=== PATIENT | male | born 1950 | race Asian ===

== ENCOUNTER 2017-07-14 07:24 | Emergency (ER) | payer BC, OTHER ==
[~2017-07-14] VITALS: Ht 167.6 cm; Wt 70.3 kg
[2017-07-14 08:00] LABS: Urine WBC None Seen /hpf (0 - 3)
[2017-07-14 08:12] LABS: Basophils # (auto) 0 uL; Basophils % (auto) 0.2 % (0.0-2.0); Eosinophils # (auto) 0 uL; Hematocrit 46.3 % (41.0-53.0); Hemoglobin 15.5 g/dL (13.5-17.5); Lymphocytes # (auto) 1.1 uL; Lymphocytes % (auto) 13.4 % (10.0-50.0); Mean Corpuscular Hemoglobin 31.5 pg (28.0-32.0); Mean Corpuscular Hgb Conc. 33.4 g/dL (32.0-36.0); Mean Corpuscular Volume 94.4 fL (80.0-100.0); Monocytes # (auto) 0.4 uL; Monocytes % (auto) 4.2 % (0.0-12.0); Neutrophils # (auto) 6.8 uL; Neutrophils % (auto) 82.2 % (37.0-80.0); Platelet Count (auto) 220 10^3/uL (140-450); Red Blood Cells 4.91 10^6/uL (4.5-5.90); Red Cell Distribution Width 12.9 % (11.8-14.3); White Blood Cell 8.3 10^3/uL (4.4-10.8)
[2017-07-14 08:26] LABS: Albumin 4.1 g/dL (3.4-5.0); Calcium 12.6 mg/dL (8.5-10.1); Potassium 4.3 mmol/L (3.5-5.1)
[2017-07-14 08:28] LABS: BUN/Creatinine Ratio 13.6
[2017-07-14 08:31] LABS: Bilirubin, Total 0.5 mg/dL (0.2-1.0); Total Protein 8.8 g/dL (6.4-8.2)
[2017-07-14 08:37] LABS: Urine Amorphous Crystal MANY /hpf (None Seen); Urine Bacteria NONE SEEN /hpf (None Seen); Urine Blood Negative /uL (Negative); Urine Mucus FEW (None Seen); Urine Specific Gravity 1.013 (1.001-1.035)
[2017-07-14 10:57] VITALS: BP 158/83
[2017-07-14] MEDS ORDERED: HYDROcodone-ACET 10/325MG TAB PO ONE (11:15)
[2017-07-14] MEDS ORDERED: ONDANSETRON ODT 4 MG TAB PO ONE (11:15)
== END 2017-07-14 12:14 | disposition home or self-care (01) ==
LOC: ER 07:27
DX: K44.9 Diaphragmatic hernia without obstruction or gangrene (principal); E11.65 Type 2 diabetes mellitus with hyperglycemia; I10 Essential (primary) hypertension; Z88.6 Allergy status to analgesic agent
CPT/HCPCS: 36415; 71046; 74176; 80053; 81001; 82150; 82962; 83690; 84484; 85025; 93005; 99285; Q0162